=== PATIENT | male | born 1965 | race Caucasian/White ===

== ENCOUNTER 2019-01-24 07:30 | Inpatient (IN) ==
[2019-01-20 12:46] LABS: Appearance,Urine CLEAR; Bacteria,Urine 0 /hpf (0); Bilirubin,Urine NEG (NEG); Color,Urine YELLOW; Glucose,Urine (UA) NEGATIVE (NEG); Leukocyte Esterase,Urine NEG /uL (NEG); Mucus,Urine FEW /hpf (0); Protein,Urine NEG (NEG); Urine Blood 0.03 mg/dL (<0.03); Urine RBC 1 /hpf (0-1); Urine Squamous Epithelial Cell < 1 /hpf (0-4); Urine WBC < 1 /hpf (0-4); Urobilinogen,Urine NEG (NEG)
[2019-01-20 12:48] LABS: Basophils # (Auto) 0 K/mcL (0.0-0.3); Basophils % (Auto) 0.2 % (0.0-2.0); Eosinophils # (Auto) 0.1 K/mcL (0.0-0.7); Eosinophils % (Auto) 1.8 % (0.0-7.0); Granulocytes % (Auto) 54.5 % (38.0-78.0); Lymphocytes # (Auto) 2.1 K/mcL (1.5-4.8); Lymphocytes % (Auto) 37.7 % (15.5-49.0); Mean Cell Volume 90.2 fL (80.0-100.0); Mean Corpuscular HGB Conc 34.1 g/dL (31.0-36.0); Monocytes # (Auto) 0.3 K/mcL (0.1-0.9); Monocytes % (Auto) 5.8 % (1.0-12.0); Platelet Count 230 K/mcL (140-440); RBC 4.94 M/mcL (4.50-5.90); Red Cell Distribution Width 13.4 % (11.5-14.5)
[2019-01-20 13:16] LABS: Blood Urea Nitrogen 15 mg/dl (6-20)
[2019-01-20 14:37] LABS: Estimated Average Glucose(eAG) 192 mg/dL; Hemoglobin A1C 8.3 % HGB (4.0-6.0)
[~2019-01-24 07:30] MED LIST: 0.9 % SODIUM CHLORIDE 9 ML, KETOROLAC 30 MG, ROPIVACAINE HCL/PF 49.5 ML, EPINEPHrine 0.... IJ SCH; ACETAMINOPHEN 500 MG TABLET PO SCH; CELECOXIB 200 MG CAPSULE PO SCH; PREGABALIN 75 MG CAPSULE PO SCH; ceFAZolin 3 GM in DEXTROSE 5% IN WATER 50 ML IV SCH; oxyCODONE 10 MG TAB.ER.12H PO SCH
[2019-01-24] MEDS ORDERED: DEXAMETHASONE 10 MG/ML VIAL IV ONE (12:50)
[2019-01-24] MEDS ORDERED: TRANEXAMIC ACID 1,000 MG/10 ML VIAL IV ONE ×2 (12:50→14:25)
[2019-01-24] MEDS ORDERED: MIDAZOLAM 5 MG/5 ML VIAL IV ONE (12:50)
[2019-01-24] MEDS ORDERED: KETAMINE 100 MG/ML ML IV ONE (12:50)
[2019-01-24] MEDS ORDERED: LIDOCAINE HCL/PF 100 MG/5 ML SYRINGE IV ONE (12:50)
[2019-01-24] MEDS ORDERED: GLYCOPYRROLATE 0.2 MG/ML VIAL IV ONE (12:50)
[2019-01-24] MEDS ORDERED: ROPIVACAINE HCL/PF 20 ML VIAL IJ ONE (12:50)
[2019-01-24] MEDS ORDERED: ONDANSETRON 4 MG/2 ML VIAL IV ONE (12:50)
[2019-01-24] MEDS ORDERED: PROPOFOL 200 MG/20 ML VIAL IV ONE (12:50)
[2019-01-24] MEDS ORDERED: PHENYLEPHRINE 10 MG/ML VIAL IV ONE (12:50)
[2019-01-24] MEDS ORDERED: fentaNYL 100 MCG/2 ML VIAL IV ONE (12:50)
[2019-01-24] MEDS ORDERED: GENTAMICIN SULFATE 800 MG/20 ML VIAL IR ONE (13:12)
[2019-01-24] MEDS ORDERED: LACTATED RINGERS 250 ML IV PRN (13:33)
[2019-01-24] MEDS ORDERED: fentaNYL 100 MCG/2 ML VIAL IV PRN (13:33)
[2019-01-24] MEDS ORDERED: IPRATROPIUM/ALBUTEROL 3 ML AMPUL.NEB NEB PRN (13:33)
[2019-01-24] MEDS ORDERED: PROMETHAZINE 25 MG/ML VIAL IM PRN (13:33)
[2019-01-24] MEDS ORDERED: FLUMAZENIL 0.1 MG/ML ML IV PRN (13:33)
[2019-01-24] MEDS ORDERED: MEPERIDINE 50 MG/ML INJECTION IM PRN (13:33)
[2019-01-24] MEDS ORDERED: MEPERIDINE 25 MG/ML SYRINGE IV PRN (13:33)
[2019-01-24] MEDS ORDERED: BENZOCAINE/MENTHOL 1 LOZENGE PO PRN ×2 (13:33→14:25)
[2019-01-24] MEDS ORDERED: ONDANSETRON 4 MG/2 ML VIAL IV PRN ×2 (13:33→14:25)
[2019-01-24] MEDS ORDERED: NALOXONE HCL 0.4 MG/ML VIAL IV PRN (13:33)
[2019-01-24] MEDS ORDERED: METHOCARBAMOL 1,000 MG/10 ML VIAL IV PRN (13:33)
[2019-01-24] MEDS ORDERED: HYDROmorphone 2 MG/ML VIAL IV PRN (13:33)
[2019-01-24] MEDS ORDERED: KETOROLAC 30 MG/ML VIAL IV PRN (13:33)
[2019-01-24] MEDS ORDERED: LACTATED RINGERS 1,000 ML IV SCH (13:45)
[2019-01-24] MEDS ORDERED: MAGNESIUM HYDROXIDE 30 ML ORAL.SUSP PO PRN (14:25)
[2019-01-24] MEDS ORDERED: BISACODYL 10 MG SUPP.RECT PR PRN (14:25)
[2019-01-24] MEDS ORDERED: FLEETS ADULT ENEMA PR PRN (14:25)
[2019-01-24] MEDS ORDERED: TEMAZEPAM 15 MG CAPSULE PO PRN (14:25)
[2019-01-24] MEDS ORDERED: POLYETHYLENE GLYCOL 3350 17 GM PACKET PO PRN (14:25)
[2019-01-24] MEDS ORDERED: ACETAMINOPHEN 325 MG TABLET PO PRN (14:25)
--- NOTE | 2019-01-24 14:25 | Brief Operative Note ---
Date of procedure: 01/24/19 Pre-op diagnosis: left knee djd severe Post-op diagnosis: same Procedure: left robotic tka Surgeon: Subhash Davila Rehab Technician: Severiano Otto Estimated blood loss (cc): 40 Tourniquet Time (Minutes): 57 Specimens Removed/Pathology: none sent Condition: stable Disposition: PACU
[2019-01-24] MEDS ORDERED: 0.45 % SODIUM CHLORIDE 1,000 ML IV SCH (14:30)
--- NOTE | 2019-01-24 15:30 | Operative Note ---
DATE OF OPERATION: 01/24/2019 PREOPERATIVE DIAGNOSES: Left knee degenerative arthritis with a flexion contracture of 8 degrees. POSTOPERATIVE DIAGNOSIS: Left knee degenerative arthritis with a flexion contracture of 8 degrees. PROCEDURE: Left total knee arthroplasty with the Luis Manuel robot. SURGEON: Subhash Davila M.D. MUSIC AUTOGRAPHER: Severiano Otto PA-C. ANESTHESIA: General LMA anesthesia. COMPLICATIONS: None. TOTAL TOURNIQUET TIME: 57 minutes. IMPLANTS: A size 7 femur and size 7 tibial baseplate with a 9 mm poly insert deep dish. We were able to achieve full range of motion. No complication. Other things given were antibiotics and tranexamic acid. DESCRIPTION OF PROCEDURE: The patient was brought to the operating room and put to sleep with general LMA anesthesia. Once asleep, the patient had the left leg sterilely prepped and draped in the usual sterile fashion. A timeout was performed and confirmed as the operative site by initials, consent form and x-rays. After confirming this was the site, we started the case. Severiano Otto PA-C was the cafe assistant needed for the complication of the case, which included a Luis Manuel robot total knee arthroplasty and wound closure and assistance throughout the case vital to the case's success. As we proceeded with the case, we made a midline incision, a midvastus approach performed. The knee was exsanguinated with the tourniquet at 250 pounds of pressure. We exposed the joint, showing severe arthritis of the medial compartment and the trochlear groove. Intact ACL and PCL was evident with tearing of the meniscus. We then proceeded with registering the center of hip rotation, medial and lateral malleoli, and thirty points on the femur and the tibia. Intra-articular pins were all registered. We registered the robot, and then it was brought in to help navigate the cuts. It was used to cut the tibia and then the femoral cuts were accomplished after balancing the knee. We found the patient's knee to be 8 degrees of flexion contracture. We made the balancing of the knee to correct this deformity. We made these bony cuts, and they were removed. The remnants of the meniscus were removed, as well as loose bodies posteriorly, as well as osteophytes posteriorly, most of which were found medially. We then trialed the components, which was a 7 tibial baseplate, setting the rotation using the Luis Manuel robot, as well as the femoral component was lateralized as far as possible. All fit well. We then trialed a size 9, which gave us full range of motion. We were able to achieve full extension. We then prepared the patellar button which measured 29 mm. This was cut to 19 mm in total thickness and then trialed the size 39 mm patellar button. This was cemented into place, as well as all the other components, a size 7 tibial baseplate, size 7 femur, 9 mm deep dish poly liner. We preserved the posterior cruciate ligament. We irrigated thoroughly, and this seemed to still demonstrate full range of motion. We irrigated thoroughly and closed the midvastus approach with #1 Stratafix, and the skin was closed with 2-0 Vicryl and adhesive closure. Sterile bandage was applied. Tourniquet deflated at approximately 57 minutes. RBH:swathi Job ID: [id number] Doc ID: [id number] Subhash Davila MD
--- NOTE | 2019-01-24 16:46 | XRay Report ---
CLINICAL INFORMATION: Post-Op Total Knee COMPARISON: None. FINDINGS: Total knee prostheses is anatomically aligned. No osseous abnormality. Periarticular gas and soft tissue swelling seen as expected. IMPRESSION: Negative Interpreted and Authenticated by: Og Asencio 01/24/19
[2019-01-24] MEDS: KETOROLAC 15 MG/ML VIAL IV SCH ×2 (17:46→23:36)
[2019-01-24] MEDS: metFORMIN 500 MG TABLET PO SCH (17:47)
[2019-01-24] MEDS: oxyCODONE/APAP 5/325MG TABLET PO PRN ×2 (19:06→23:37)
[2019-01-24] MEDS: HYDROmorphone 2 MG/ML VIAL IV PRN (20:24)
[2019-01-24] MEDS: ASPIRIN 325 MG ENTERIC COATED TABLET PO SCH (20:30)
[2019-01-24] MEDS: DOCUSATE SODIUM 100 MG CAPSULE PO SCH (20:30)
[2019-01-24] MEDS: ceFAZolin 1 GM VIAL IV SCH (20:36)
[2019-01-24] MEDS: 0.9 % SODIUM CHLORIDE 10 ML SYRINGE IV SCH (20:47)
[2019-01-24] MEDS ORDERED: ATORVASTATIN 20 MG TABLET PO SCH (21:00)
[2019-01-24] MEDS ORDERED: SENNOSIDES 1 TABLET PO SCH (21:00)
[2019-01-25] MEDS: HYDROmorphone 2 MG/ML VIAL IV PRN (02:48)
[2019-01-25] MEDS: ceFAZolin 1 GM VIAL IV SCH (04:29)
[2019-01-25] MEDS: 0.9 % SODIUM CHLORIDE 10 ML SYRINGE IV SCH (04:30)
[2019-01-25] MEDS: KETOROLAC 15 MG/ML VIAL IV SCH (05:48)
[2019-01-25] MEDS: oxyCODONE/APAP 5/325MG TABLET PO PRN ×2 (06:27→10:58)
--- NOTE | 2019-01-25 07:50 | Orthopedic Progress Note ---
Subjective Patient information: Note initiated : 01/25/19 at 7:49 am Service Date, if different from initiated Date: [] Patient: Juan Carlos Lindsay 53 y/o M admitted on 01/24/19 for Left Robotic Total Knee Arthroplasty. Chief Complaint: [Pt is stable this morning on post operative day 1 without any significant concerns or complaints. Patients vital signs have remained stable. Patients dressing is dry and is grossly intact from a neurovascular and motor standpoint. Patients 10 point ROS is otherwise negative. ] Objective Vital signs: Vital Signs Temp Pulse Resp BP Pulse Ox 01/25/19 07:33 97.8 F 59 L 14 115/57 96 01/25/19 02:43 97.6 F 53 L 14 101/62 96 01/25/19 00:00 96 01/24/19 23:35 97.7 F 59 L 14 106/68 95 01/24/19 19:17 97.6 F 81 14 116/76 96 01/24/19 18:39 98.2 F 74 16 116/76 95 01/24/19 17:37 99/69 93 01/24/19 17:06 101/71 93 01/24/19 16:36 93/62 92 01/24/19 16:25 72 01/24/19 16:21 99/62 92 01/24/19 16:09 97 01/24/19 16:05 72 14 90 01/24/19 16:04 91/58 95 01/24/19 15:52 92/60 92 01/24/19 15:36 97.4 F 93/62 94 01/24/19 15:30 97.0 F 77 18 106/58 95 01/24/19 15:25 97.2 F 76 15 107/57 97 01/24/19 15:10 97.4 F 77 15 114/56 100 01/24/19 15:05 68 11 L 99/51 94 01/24/19 15:00 70 10 L 98/49 94 01/24/19 14:55 97.3 F 73 15 107/54 95 01/24/19 14:52 97.3 F 83 14 108/55 95 01/24/19 09:36 98.5 F 16 125/84 94 01/24/19 09:08 78 18 94 Intake and Output 01/24/19 01/25/19 01/25/19 21:59 05:59 13:59 Intake Total 3000 1127 Output Total 600 300 Balance 3000 527 -300 Intake: IV 827 Sodium Chloride 0.45% 1,000 ml 827 @ 100 mls/hr IV .Q10H DAVID Rx#: [id number] Oral 1000 300 IV - Manual Only 1999 Output: Void Amount 600 300 Other: Urine Appearance Clear Urine Color Dark Mikayla Weight 311 lb 8 oz Intake & Output: Intake & Output 01/24/19 01/25/19 01/25/19 21:59 05:59 13:59 Intake Total 3000 1127 Output Total 600 300 Balance 3000 527 -300 Weight 311 lb 8 oz Intake: IV 827 Sodium Chloride 0.45% 1,000 ml 827 @ 100 mls/hr IV .Q10H DAVID Rx#: [id number] Oral 1000 300 IV - Manual Only 1999 Output: Void Amount 600 300 Other: Urine Appearance Clear Urine Color Dark Mikayla Incision: Yes healing Incision clean and dry: Yes Dressing: Yes clean, Yes dry Weight bearing status: full Neurological exam IM: Yes motor sensory intact, Yes neurovascular intact Extremities exam IM: Yes Foot pink and warm, Yes neurovascular intact - Labs CBC & BMP: 01/25/19 04:10 01/20/19 11:25 Labs: 01/25/19 01/20/19 04:10 11:25 Hgb 15.2 Hct 39.6 L 44.5 Assessment and Plan (1) Hx of total knee arthroplasty The patient has been educated regarding dressing care, Physical Therapy recommendations, home exercises, restrictions, and follow up appointments. The patient has had all necessary DME prescribed. The patient has remained relatively stable during their hospital course. Leave Dermabond patch intact until followup Status: Acute
--- NOTE | 2019-01-25 07:53 | Discharge Summary ---
Ortho Discharge - TKA - Patient Instructions Diet: Regular Diet Activity: activity as tolerated, weight bearing as tolerated Total Knee Protocol: For Total Knee: Start ROM JOSSUE with stationary bike or rocking chair. Work on gaining full extension of knee. Posterior dislocation precautions provided. Hip abductor strengthening and gait training instructions provided. Apply Cryocuff as instructed. Dressing Care: May shower in 2 days - Problem Maintenance (1) Hx of total knee arthroplasty Status: Acute - Follow Up Plan Disposition: Home, Self-Care Prognosis: Good Rehab Potential: Good I certify that the patient requires SNF services: No Overall status at discharge: patient is progressing back to baseline - Orders For Discharge Prescriptions: Aspirin [Ecotrin] 325 mg PO BID #60 tab.ec Docusate Sodium [Colace] 100 mg PO BID #60 cap oxyCODONE/APAP [Percocet 10-325Mg] 1 - 2 tab PO Q4-6HP PRN #75 tab PRN Reason: Pain
[2019-01-25] MEDS: DOCUSATE SODIUM 100 MG CAPSULE PO SCH (08:17)
[2019-01-25] MEDS: ASPIRIN 325 MG ENTERIC COATED TABLET PO SCH (08:18)
[2019-01-25] MEDS: metFORMIN 500 MG TABLET PO SCH (08:18)
[2019-01-25] MEDS ORDERED: LISINOPRIL 20 MG TABLET PO SCH (09:00)
[2019-01-25] MEDS ORDERED: ALLOPURINOL 300 MG TABLET PO SCH (09:00)
== END 2019-01-25 11:01 | disposition home or self-care (01) | DRG 470 ==
LOC: MEDSUR 09:08
PROVIDERS: ADMIT Orthopaedic Surgery; ATTEND Orthopaedic Surgery